=== PATIENT | male | born 2000 | race Two or more races ===

== ENCOUNTER 2018-03-09 16:45 | Emergency (ER) | payer OTHER ==
[~2018-03-09] VITALS: Ht 182.9 cm; Wt 113.9 kg
[~2018-03-09 16:45] MED LIST: CATAPRES-TTS 10.1 MG PO; CATAPRES0.2 MG PO; CLONIDINE HCL0.2 MG; CLONIDINE HCL0.2 MG PO; FOCALIN XR15 M1 PO; FOCALIN XR15 MG PO; FOCALIN XR20 MG PO; FOCALIN10 MG; FOCALIN10 MG PO; FOCALIN5 MG PO; GEODON60 MG PO; KAPVAY0.1 MG; KAPVAY0.1 MG PO; LATUDA40 MG PO; LEXAPRO10 MG; LEXAPRO10 MG PO; LEXAPRO20 MG PO; LITHIUM CARBON300 MG PO; LITHIUM CARBON450 MG; LITHIUM CARBON450 MG PO; LITHIUM CARBON600 MG PO; MOTRIN800 MG PO; NOHOMEMEDS; RISPERDAL0.25 M1 PO; RISPERDAL1 MG PO; RISPERDAL2 MG PO; SEROQUEL400 MG PO; SILVADENE20 GM TP
[2018-03-09 17:48] LABS: SOURCE URINE
[2018-03-09 17:52] LABS: APPEARANCE CLEAR ((CLEAR)); BILIRUBIN NEGATIVE; BLOOD MODERATE; COLOR STRAW ((YELLOW)); GLUCOSE (STRIP) NEGATIVE; KETONES NEGATIVE; LEUKOCYTES MODERATE; NITRITE NEGATIVE; PROTEIN (STRIP) NEGATIVE; SPECIFIC GRAVITY 1.006 (1.000-1.030); UROBILINOGEN 0.2 MG/DL (0.2-1.0)
[2018-03-09 17:56] LABS: BACTERIA NONE SEEN /HPF; EPITHELIAL CELLS RARE /HPF; MUCUS NONE SEEN /LPF; RED BLOOD CELLS 40-50 /HPF (0-5); UCUL ADDED? YES; WHITE BLOOD CELLS 30-40 /HPF (0-5)
[2018-03-09 18:49] LABS: HEMATOCRIT 45.4 % (38.0-50.0); HEMOGLOBIN 16.2 G/DL (12.5-16.6); MCH 29.3 PG (29.0-34.0); MCHC 35.7 G/DL (30.0-36.0); MCV 82.1 FL (86-99); PLATELET COUNT 263 K/uL (156-360); RBC DIS.WIDTH-CV 12.3 % (11.8-14.6); RED BLOOD COUNT 5.53 M/uL (4.00-5.50); WHITE BLOOD COUNT 9.6 K/uL (4.1-10.2)
[2018-03-09 18:58] LABS: ALBUMIN 4.6 g/dL (3.2-4.8); CHLORIDE 109 mEq/L (99-109); POTASSIUM 4.1 mEq/L (3.7-5.4); SODIUM 141 mEq/L (136-147)
[2018-03-09 19:01] LABS: GLUCOSE 91 mg/dL (70-99); TOTAL PROTEIN 7.3 g/dL (6.4-8.3)
[2018-03-09 19:03] LABS: TOTAL BILIRUBIN 0.8 mg/dL (0.0-1.0)
[2018-03-09 19:04] LABS: ALKALINE PHOSPHATASE 113 IU/L (3-129); GFR ESTIMATE (CALCULATED) > 59 mL/min/ (58.99-99999)
[2018-03-09 19:05] LABS: UREA NITROGEN (BUN) 6 mg/dL (9-23)
[2018-03-09 19:06] LABS: AST (GOT) 35 IU/L (2-34)
[2018-03-09 19:07] LABS: ALT (GPT) 58 IU/L (3-49)
[2018-03-09] MEDS ORDERED: CIPRO500 MG PO (20:09)
[2018-03-09 20:20] VITALS: BP 144/95
[2018-03-10 19:46] LABS: CHLAMYDIA TRACHOMATIS NEGATIVE; NEISSERIA GONORRHOEAE NEGATIVE
== END 2018-03-09 20:20 | disposition home or self-care (01) ==
LOC: EME 16:45
PROVIDERS: Physician Assistant
DX: N39.0 Urinary tract infection, site not specified (principal); R19.7 Diarrhea, unspecified; I10 Essential (primary) hypertension; Z11.3 Encounter for screening for infections with a predominantly sexual mode of transmission
CPT/HCPCS: 80053; 80178; 81003; 85027; 87086; 87491; 87591; 99281; 99284